=== PATIENT | female | born 1970 ===

== ENCOUNTER → 2021-06-12 16:14 | Outpatient (CLI) | payer OTHER, SELFPAY ==
[2021-06-12 16:49] LABS: COVID19 -Nasal RAPID POSITIVE (Negative)
== END ==
PROVIDERS: Referring Provider Nurse Practitioner Critical Care Medicine; Visit Provider Nurse Practitioner Critical Care Medicine
DX: Z20.822 Contact with and (suspected) exposure to COVID-19 (principal)
CPT/HCPCS: 87635